=== PATIENT | female | born 1930 | race Caucasian/White ===

== ENCOUNTER 2016-11-01 09:40 | Observation (INO) | payer MEDICARE, OTHER ==
[~2016-11-01 09:40] MED LIST: ADULT ASPIRIN81 MG; ADULT ASPIRIN81 MG PO; ALAVERT10 MG PO; ALBUTEROL SULF8.5 G1 IH; ALDACTONE25 MG; ALDACTONE25 MG PO; ALLEGRA180 MG PO; AMBIEN5 MG PO; AMLODIPINE BESY10 M1 PO; AMLODIPINE BESYL5 MG PO; ANTIVERT25 MG PO; ASPIR 8181 M1 PO; ASPIR 8181 MG PO; ASPIR-TRIN325 M2 PO; ASPIRIN BUFFER325 M2 PO; ASPIRIN325 M3 PO; ASPIRIN325 MG; ASPIRIN81 MG PO; ATIVAN PO; ATIVAN0.5 MG PO; BACTRIM1 TAB PO; BANOPHEN25 MG; BENICAR20 MG; BISOPROLOL FUMAR5 M1 PO; CALCIUM + D T1 UDTAB PO; CALCIUM 500 +1 EAC9 PO; CALCIUM 500 WI1 EAC1 PO; CALCIUM CITRAT1 EAC5 PO; CALCIUM500 M1 PO; CALCIUM600 MG PO; CIPRO HC OTIC S10 ML OT; CIPRO500 MG PO; CLONIDINE HCL0.1 M2 PO; CLONIDINE HCL0.1 MG PO; COLACE100 MG; CRESTOR10 MG; CRESTOR20 MG; CRESTOR20 MG PO; D-VERT25 MG PO; DAILY MULTIPLE1 EACH PO; DARVOCET-N 1001 TAB; DELTASONE5 MG PO; DYRENIUM50 MG PO; FLEXERIL5 M1 PO; FLONASE16 GM NS; GLUCAGON1 MG/KIT IM; GLUCOPHAGE XR500 MG PO; GLUCOPHAGE500 M3 PO; GLUCOPHAGE500 MG; GLUCOPHAGE500 MG PO; HUMALOG100 U/ML SQ; HYDROCHLOROTHIA25 MG; HYZAAR 100-251 EACH PO; INSULIN HUMALOG; INSULIN SLIDING SCAL; ISORDIL10 MG; K-DUR20 MEQ; LABETALOL HCL100 MG PO; LANTUS100 U/ML; LANTUS100 U/ML SC; LEVAQUIN500 MG PO; LEVEMIR100 UNITS/ SC; LEVOTHROID112 MCG PO; LEVOTHROID125 MCG; LEVOTHYROXINE112 MC3 PO; LEVOTHYROXINE112 MCG PO; LEXAPRO10 MG; LIDODERM700 MG TP; LIPITOR40 MG PO; LISINOPRIL10 M1 PO; LISINOPRIL10 MG PO; LOPRESSOR50 MG; LOSARTAN-HCTZ1 EAC5 PO; MAGNESIUM LACTATE PO; MAXZIDE1 TAB PO; MEDROL DOSE-4 MG/TAB PO; MELOXICAM15 MG PO; METFORMIN HCL500 MG PO; METFORMIN PO; METOPROLOL SUCC25 M1 PO; MICARDIS HCT; MILK OF MA400 MG/5 M; MUCINEX600 MG PO; MULTIVITAM1 TAB.CHEW; MULTIVITAMIN W/1 TA; MULTIVITAMIN W/1 TA PO; MULTIVITAMIN W1 EAC2 PO; MULTIVITAMIN/IRON PO; MULTIVITAMIN1 TAB PO; MULTIVITAMINS1 EAC6 PO; NASONEX17 GM NS; NEURONTIN300 MG PO; NITROGLYCERIN0.4 M1 SL; NITROGLYCERIN0.4 M2 SL; NITROGLYCERIN0.4 MG SL; NITROQUICK0.4 MG; NITROSTAT0.4 MG SL; NORCO 5-325 TA1 EACH PO; NORCO 5/325 TAB1 TAB PO; NORCO 5/3251 TA1 PO; NORCO 5/3251 TAB PO; NORMODYNE100 MG PO; NORVASC10 M2 PO; NORVASC10 MG PO; NORVASC5 MG PO; NOVOLOG100 U/M; NOVOLOG100 U/M SQ; NOVOLOG100 UNIT/2 SC; NOVOLOG100 UNITS/ SC; OMEGA-3 FISH OI1 CAP; PLAVIX75 M1 PO; PRAVACHOL40 M1 PO; PRAVACHOL40 MG PO; PRILOSEC20 MG PO; PROMETHAZINE HC25 M3 PO; PROTONIX40 M1 PO; PROTONIX40 M2 PO; RANEXA1000 M1 PO; RANEXA1000 MG PO; RANEXA500 MG PO; ROBITUSSIN100 MG/5 M PO; SENNA PLUS TAB1 EACH PO; SKELAXIN800 M3 PO; SPIRONOLACTONE25 M1 PO; SPIRONOLACTONE25 M2 PO; SPIRONOLACTONE50 M1 PO; SUDOGEST30 MG/5 ML GT; SYNTHROID112 MCG; SYNTHROID112 MCG PO; SYNTHROID125 MCG; TESSALON100 MG/CAP PO; TRANDATE100 MG; TRANDATE100 MG PO; TRANDATE100 MG/TAB PO; TRANDATE200 MG; TRESIBA FL100 UNIT/1 SC; TUMS500 MG; TYLENOL325 M2 PO; TYLENOL325 MG; TYLENOL325 MG PO; TYLENOL500 MG PO; TYLENOL650 MG; ULTRAM ER100 MG PO; VITAMIN D31000 UNI2 PO; VITAMIN D32000 UNI2 PO; VITAMIN D32000 UNI3 PO; ZEBETA5 M1 PO; ZOCOR10 MG PO; ZOFRAN4 M2 PO; [UNRECOGNIZED DRUG - OTHER] MC; [UNRECOGNIZED DRUG - OTHER] OP; [UNRECOGNIZED DRUG - OTHER] OP; [UNRECOGNIZED DRUG - OTHER] PO
[2016-11-01] MEDS ORDERED: GLUCAGON EMERGEN1 MG IM (10:10)
[2016-11-01] MEDS ORDERED: NOVOLOG100 UNITS/ SC (10:28)
[2016-11-01] MEDS ORDERED: METFORMIN HCL500 M2 PO (10:31)
[2016-11-01] MEDS ORDERED: GLUCOSE4 GM PO (10:32)
[2016-11-01 11:44] LABS: BASO % 0.4 % (0-2); EOS % 0.6 % (0-7); EOSINOPHIL ABSOLUTE COUNT 0.1 tho/cmm (0.0-0.7); HCT-HEMATOCRIT 43.9 % (34.0-49.0); IMMATURE GRANULOCYTES ABSOLUTE 0.01 tho/cmm (0-0.03); IMMATURE GRANULOCYTES PERCENT 0.1 % (0-0.3); LYMPH % 24.9 % (20-45); MCH (MEAN CORPUSCULAR HGB) 30.6 pg (28.0-32.0); MCHC MEAN CORPUSCULAR HGB CONC 34.2 % (32.0-36.0); MCV (MEAN CELL VOLUME) 89.6 fl (82.0-96.0); MEAN PLATELET VOLUME 10.5 cmc (9.4-12.4); MONO % 4.4 % (0-12); MONOCYTE ABSOLUTE COUNT 0.4 tho/cmm (0.0-1.2); NEUTROPHIL ABSOLUTE COUNT 5.7 tho/cmm (1.6-8.0); NEUTROPHIL-AUTOMATED 5.7 tho/cmm (1.6-8.0); NEUTROPHILS % 69.6 % (40-80); PLATELET COUNT 347 tho/cmm (150-450); WHITE BLOOD COUNT 8.2 tho/cmm (4.0-10.0)
[2016-11-01 11:50] LABS: ANION GAP 13 mmol/L (0-20); BLOOD UREA NITROGEN 27 mg/dl (6-24); CALCIUM 9.6 mg/dl (8.5-10.5); CARBON DIOXIDE-VENOUS 26 mmol/L (22-32); CHLORIDE 106 mmol/l (96-110); CREATININE 1.16 mg/dl (0.50-1.10); GLUCOSE 107 mg/dL (70-110); POTASSIUM 4.1 mmol/L (3.7-5.1); SODIUM 141 mmol/L (135-145); eGFR VALUE FOR BLACK 50 mL/Min
[2016-11-01 13:37] LABS: URINE BILIRUBIN NEGATIVE (NEG); URINE BLOOD NEGATIVE (NEG); URINE GLUCOSE (UA) NEGATIVE (NEG); URINE KETONE NEGATIVE (NEG); URINE LEUKOCYTE ESTERASE POSITIVE (NEG); URINE NITRITE NEGATIVE (NEG); URINE PH 6.5 (5.0-8.0); URINE PROTEIN MODERATE (NEG)
[2016-11-01 13:39] LABS: URINE APPEARANCE CLEAR; URINE COLOR YELLOW
[2016-11-01 13:50] LABS: URINE EPITHELIAL CELLS 15-20 /[HPF] (0-10)
[2016-11-03] MEDS ORDERED: ASPIRIN EC81 MG PO (08:10)
[2016-11-03] MEDS ORDERED: COZAAR50 M1 PO (08:12)
== END 2016-11-03 10:35 ==
LOC: EDMED 09:40 → EMR2 16:41 → CAR1 17:30
PROVIDERS: Emergency Medicine; ADMIT Internal Medicine Cardiovascular Disease
DX: I25.119 Atherosclerotic heart disease of native coronary artery with unspecified angina pectoris (principal); E78.5 Hyperlipidemia, unspecified; I73.9 Peripheral vascular disease, unspecified; M54.81 Occipital neuralgia; R42 Dizziness and giddiness; E11.22 Type 2 diabetes mellitus with diabetic chronic kidney disease; I12.9 Hypertensive chronic kidney disease with stage 1 through stage 4 chronic kidney disease, or unspecified chronic kidney disease; N18.9 Chronic kidney disease, unspecified; I27.2 Other secondary pulmonary hypertension; Z79.4 Long term (current) use of insulin; Z79.82 Long term (current) use of aspirin; Z79.899 Other long term (current) drug therapy; Z88.2 Allergy status to sulfonamides; Z91.041 Radiographic dye allergy status; Z86.718 Personal history of other venous thrombosis and embolism; Z86.711 Personal history of pulmonary embolism; Z82.49 Family history of ischemic heart disease and other diseases of the circulatory system; Z90.49 Acquired absence of other specified parts of digestive tract; Z90.710 Acquired absence of both cervix and uterus; Z90.89 Acquired absence of other organs; Z95.0 Presence of cardiac pacemaker; Z95.1 Presence of aortocoronary bypass graft; Z98.890 Other specified postprocedural states
CPT/HCPCS: G0378; J1170; J1815

== ENCOUNTER 2016-11-21 20:38 | Observation (INO) | payer MEDICARE, OTHER ==
[~2016-11-21 20:38] MED LIST changes: +ASPIRIN EC81 MG PO; +COZAAR50 M1 PO; +GLUCAGON EMERGEN1 MG IM; +GLUCOSE4 GM PO; +METFORMIN HCL500 M2 PO
[2016-11-21 21:37] LABS: BASO % 0.4 % (0-2); EOSINOPHIL ABSOLUTE COUNT 0.2 tho/cmm (0.0-0.7); HCT-HEMATOCRIT 41.2 % (34.0-49.0); HGB-HEMOGLOBIN 14.2 gm/dl (12.0-15.5); IMMATURE GRANULOCYTES ABSOLUTE 0.02 tho/cmm (0-0.03); IMMATURE GRANULOCYTES PERCENT 0.3 % (0-0.3); LYMPH % 33.4 % (20-45); LYMPH ABSOLUTE COUNT 2.5 tho/cmm (0.8-4.5); MCHC MEAN CORPUSCULAR HGB CONC 34.5 % (32.0-36.0); MCV (MEAN CELL VOLUME) 87.1 fl (82.0-96.0); MEAN PLATELET VOLUME 9.8 cmc (9.4-12.4); MONO % 6.5 % (0-12); MONOCYTE ABSOLUTE COUNT 0.5 tho/cmm (0.0-1.2); NEUTROPHIL ABSOLUTE COUNT 4.3 tho/cmm (1.6-8.0); NEUTROPHIL-AUTOMATED 4.3 tho/cmm (1.6-8.0); NEUTROPHILS % 57.4 % (40-80); PLATELET COUNT 351 tho/cmm (150-450); RED BLOOD COUNT 4.73 mil/cmm (4.00-5.20); RED CELL DISTRIBUTION WIDTH 13.5 % (12.4-16.4); WHITE BLOOD COUNT 7.5 tho/cmm (4.0-10.0)
[2016-11-21 21:55] LABS: ALBUMIN 3.8 g/dl (3.5-5.0); ALKALINE PHOSPHATASE 99 U/L (33-138); ALT/SGPT 22 U/L (12-78); ANION GAP 13 mmol/L (0-20); AST/SGOT 16 U/L (10-40); BILIRUBIN,TOTAL 0.2 mg/dl (0-1.5); BLOOD UREA NITROGEN 23 mg/dl (6-24); CALCIUM 9.2 mg/dl (8.5-10.5); CARBON DIOXIDE-VENOUS 24 mmol/L (22-32); CHLORIDE 107 mmol/l (96-110); CREATININE 1.27 mg/dl (0.50-1.10); GLUCOSE 147 mg/dL (70-110); MAGNESIUM 1.9 mg/dl (1.3-2.6); POTASSIUM 3.5 mmol/L (3.7-5.1); SODIUM 140 mmol/L (135-145); eGFR VALUE FOR BLACK 45 mL/Min
[2016-11-21 21:59] LABS: TSH-THYROID STIMULATING HORM. 3.47 uIU/ml (0.40-3.80)
[2016-11-21] MEDS ORDERED: BISOPROLOL FUMAR5 M1 PO (23:01)
[2016-11-21] MEDS ORDERED: CATAPRES0.1 M1 PO (23:02)
[2016-11-21] MEDS ORDERED: ELIQUIS2.5 M1 PO (23:04)
[2016-11-22] MEDS ORDERED: ISOSORBIDE MONO30 M4 PO (13:44)
[2016-11-22] MEDS ORDERED: NITROGLYCERIN0.4 M2 SL (14:00)
== END 2016-11-22 14:40 ==
LOC: EDMED 20:38 → EMR2 23:46 → CAR1 11-22 01:14
PROVIDERS: Emergency Medicine; ADMIT Internal Medicine Cardiovascular Disease
DX: R07.9 Chest pain, unspecified (principal); I25.10 Atherosclerotic heart disease of native coronary artery without angina pectoris; R60.9 Edema, unspecified; I73.9 Peripheral vascular disease, unspecified; I10 Essential (primary) hypertension; E11.9 Type 2 diabetes mellitus without complications; E78.5 Hyperlipidemia, unspecified; E03.9 Hypothyroidism, unspecified; I48.92 Unspecified atrial flutter; Z79.01 Long term (current) use of anticoagulants; Z79.4 Long term (current) use of insulin; Z79.82 Long term (current) use of aspirin; Z79.899 Other long term (current) drug therapy; Z88.2 Allergy status to sulfonamides; Z88.5 Allergy status to narcotic agent; Z91.041 Radiographic dye allergy status; Z86.73 Personal history of transient ischemic attack (TIA), and cerebral infarction without residual deficits; Z90.49 Acquired absence of other specified parts of digestive tract; Z90.89 Acquired absence of other organs; Z98.49 Cataract extraction status, unspecified eye; Z95.0 Presence of cardiac pacemaker; Z95.1 Presence of aortocoronary bypass graft; Z98.890 Other specified postprocedural states
CPT/HCPCS: A9500; G0378; J2785

== ENCOUNTER 2017-01-03 09:45 | Inpatient (IN) | payer MEDICARE, OTHER ==
[~2017-01-03 09:45] MED LIST changes: +CATAPRES0.1 M1 PO; +ELIQUIS2.5 M1 PO; +ISOSORBIDE MONO30 M4 PO
[2017-01-03] MEDS ORDERED: LASIX20 M1 PO (09:56)
[2017-01-03] MEDS ORDERED: POTASSIUM CHLO10 ME2 PO (09:57)
[2017-01-03 10:20] LABS: BASO % 0.3 % (0-2); EOS % 1.5 % (0-7); EOSINOPHIL ABSOLUTE COUNT 0.1 tho/cmm (0.0-0.7); HCT-HEMATOCRIT 41.6 % (34.0-49.0); HGB-HEMOGLOBIN 14.4 gm/dl (12.0-15.5); IMMATURE GRANULOCYTES ABSOLUTE 0.01 tho/cmm (0-0.03); IMMATURE GRANULOCYTES PERCENT 0.2 % (0-0.3); LYMPH % 33.3 % (20-45); MCH (MEAN CORPUSCULAR HGB) 30.4 pg (28.0-32.0); MCHC MEAN CORPUSCULAR HGB CONC 34.6 % (32.0-36.0); MCV (MEAN CELL VOLUME) 87.9 fl (82.0-96.0); MEAN PLATELET VOLUME 10.4 cmc (9.4-12.4); MONO % 6.4 % (0-12); MONOCYTE ABSOLUTE COUNT 0.4 tho/cmm (0.0-1.2); NEUTROPHIL ABSOLUTE COUNT 3.5 tho/cmm (1.6-8.0); NEUTROPHIL-AUTOMATED 3.5 tho/cmm (1.6-8.0); NEUTROPHILS % 58.3 % (40-80); PLATELET COUNT 329 tho/cmm (150-450); RED BLOOD COUNT 4.73 mil/cmm (4.00-5.20); RED CELL DISTRIBUTION WIDTH 13.5 % (12.4-16.4)
[2017-01-03 10:20] LABS: INR 1.1 INR (0.9-1.1); PROTHROMBIN TIME 12.3 SECONDS (9.0-13.6)
[2017-01-03 10:23] LABS: ALB/GLOB RATIO 1.1 (0.8-2.0); ALBUMIN 4.2 g/dl (3.5-5.0); ALKALINE PHOSPHATASE 97 U/L (33-138); ALT/SGPT 26 U/L (12-78); ANION GAP 15 mmol/L (0-20); AST/SGOT 24 U/L (10-40); BILIRUBIN,TOTAL 0.5 mg/dl (0-1.5); BLOOD UREA NITROGEN 27 mg/dl (6-24); CALCIUM 9.5 mg/dl (8.5-10.5); CARBON DIOXIDE-VENOUS 24 mmol/L (22-32); CHLORIDE 106 mmol/l (96-110); CREATININE 1.35 mg/dl (0.50-1.10); GLUCOSE 156 mg/dL (70-110); SODIUM 141 mmol/L (135-145); eGFR VALUE FOR BLACK 42 mL/Min
[2017-01-03] MEDS ORDERED: MULTIVITAMINS1 EAC6 PO (10:23)
[2017-01-03 10:24] LABS: POTASSIUM 4.4 mmol/L (3.7-5.1)
[2017-01-03] MEDS ORDERED: TYLENOL325 M2 PO (10:24)
[2017-01-03 10:59] LABS: ESR-ERYTHROCYTE SED RATE 27 mm/hr (0-30)
[2017-01-03 21:25] LABS: TSH-THYROID STIMULATING HORM. 1.18 uIU/ml (0.40-3.80)
[2017-01-05 05:27] LABS: BASO % 0.4 % (0-2); EOS % 2.7 % (0-7); EOSINOPHIL ABSOLUTE COUNT 0.2 tho/cmm (0.0-0.7); HCT-HEMATOCRIT 37.4 % (34.0-49.0); HGB-HEMOGLOBIN 12.8 gm/dl (12.0-15.5); IMMATURE GRANULOCYTES ABSOLUTE 0.01 tho/cmm (0-0.03); IMMATURE GRANULOCYTES PERCENT 0.1 % (0-0.3); LYMPH % 30.1 % (20-45); MCH (MEAN CORPUSCULAR HGB) 29.8 pg (28.0-32.0); MCHC MEAN CORPUSCULAR HGB CONC 34.2 % (32.0-36.0); MCV (MEAN CELL VOLUME) 87.2 fl (82.0-96.0); MONO % 5.5 % (0-12); MONOCYTE ABSOLUTE COUNT 0.4 tho/cmm (0.0-1.2); NEUTROPHIL ABSOLUTE COUNT 4.1 tho/cmm (1.6-8.0); NEUTROPHIL-AUTOMATED 4.1 tho/cmm (1.6-8.0); NEUTROPHILS % 61.2 % (40-80); PLATELET COUNT 294 tho/cmm (150-450); RED BLOOD COUNT 4.29 mil/cmm (4.00-5.20); RED CELL DISTRIBUTION WIDTH 13.5 % (12.4-16.4); WHITE BLOOD COUNT 6.7 tho/cmm (4.0-10.0)
[2017-01-05 05:42] LABS: ANION GAP 14 mmol/L (0-20); BLOOD UREA NITROGEN 17 mg/dl (6-24); CALCIUM 8.9 mg/dl (8.5-10.5); CARBON DIOXIDE-VENOUS 25 mmol/L (22-32); CHLORIDE 107 mmol/l (96-110); CREATININE 1.11 mg/dl (0.50-1.10); GLUCOSE 129 mg/dL (70-110); MAGNESIUM 1.8 mg/dl (1.8-2.6); POTASSIUM 3.7 mmol/L (3.7-5.1); SODIUM 142 mmol/L (135-145); eGFR VALUE FOR BLACK 53 mL/Min
[2017-01-06] MEDS ORDERED: ELIQUIS5 M1 PO (09:47)
[2017-01-06] MEDS ORDERED: NOVOLOG100 UNITS/ (09:48)
[2017-01-06] MEDS ORDERED: GLUCAGEN1 MG/1 ML IM (09:50)
== END 2017-01-06 17:16 | DRG 65 ==
LOC: EDMED 09:45 → EMR2 12:05 → 5EB 15:45
PROVIDERS: Emergency Medicine; Internal Medicine Cardiovascular Disease; Psychiatry & Neurology Neurology; ADMIT Family Medicine
DX: I63.8 Other cerebral infarction (principal); G81.94 Hemiplegia, unspecified affecting left nondominant side; E11.22 Type 2 diabetes mellitus with diabetic chronic kidney disease; I48.91 Unspecified atrial fibrillation; I27.2 Other secondary pulmonary hypertension; I10 Essential (primary) hypertension; R47.01 Aphasia; E03.9 Hypothyroidism, unspecified; N18.9 Chronic kidney disease, unspecified; R45.86 Emotional lability; I12.9 Hypertensive chronic kidney disease with stage 1 through stage 4 chronic kidney disease, or unspecified chronic kidney disease; I65.23 Occlusion and stenosis of bilateral carotid arteries; I73.9 Peripheral vascular disease, unspecified; I25.10 Atherosclerotic heart disease of native coronary artery without angina pectoris; Z95.0 Presence of cardiac pacemaker; Z79.01 Long term (current) use of anticoagulants; Z79.4 Long term (current) use of insulin; Z95.5 Presence of coronary angioplasty implant and graft; Z86.718 Personal history of other venous thrombosis and embolism; Z86.711 Personal history of pulmonary embolism; Z95.1 Presence of aortocoronary bypass graft; Z90.49 Acquired absence of other specified parts of digestive tract
CPT/HCPCS: G8978-GP-CK; G8979-GP-CJ; G8987-GO-CJ; G8988-GO-CH; G9162-GN-CJ; G9163-GN-CI; J1815; J7030